=== PATIENT | female | born 1970 | race Native Hawaiian/Other Pacific Islander ===

== ENCOUNTER 2017-01-27 08:46 | Outpatient (CLI) | payer BC | END 2017-01-27 21:13 | disposition home or self-care (01) | LOC: MAMMO 08:46 | DX: Z12.31 Encounter for screening mammogram for malignant neoplasm of breast (principal); R06.02 Shortness of breath ==

== ENCOUNTER 2017-02-05 16:23 | Emergency (ER) | payer BC ==
[~2017-02-05] VITALS: Ht 162.6 cm; Wt 68.9 kg
[2017-02-05 16:55] LABS: PLATELET COUNT 285 K/uL (152-353)
[2017-02-05 16:57] LABS: POTASSIUM 4.1 mmol/L (3.6-5.2)
[2017-02-05 18:12] VITALS: BP 132/87; TEMP 98.3
== END 2017-02-05 18:13 | disposition home or self-care (01) ==
LOC: ED 16:23
PROVIDERS: Emergency Medicine
DX: J45.909 Unspecified asthma, uncomplicated (principal); R00.0 Tachycardia, unspecified
CPT/HCPCS: 36415; 80053; 85027; 93005; 94664; 96374; 99284; J2930

== ENCOUNTER 2017-03-03 08:58 | Outpatient (CLI) | payer BC | END 2017-03-03 10:00 | disposition home or self-care (01) | LOC: US 08:58 | DX: R92.8 Other abnormal and inconclusive findings on diagnostic imaging of breast (principal) | CPT/HCPCS: G0206-TC ==

== ENCOUNTER 2021-08-08 09:25 | Outpatient (CLI) | payer OTHER | END 2021-08-08 20:26 | disposition home or self-care (01) | LOC: US 09:25 | PROVIDERS: ATTEND Nurse Practitioner Family | DX: R10.11 Right upper quadrant pain (principal); R14.0 Abdominal distension (gaseous); R11.2 Nausea with vomiting, unspecified ==